=== PATIENT | male | born 1960 | race African-American/Black ===

== ENCOUNTER 2020-06-25 13:12 | Emergency (ER) | payer MEDICARE, OTHER ==
[~2020-06-25] VITALS: Ht 170.2 cm; Wt 114.8 kg
--- NOTE | 2020-06-25 13:30 | NUR ---
AAOX3, BIBRA39 FRM SCHVN C/O DIFFUSE ABDOMINAL PAIN X 20 MINS S/P EATING LUNCH. RR is even and unlabored with NAD noted. Skin is warm and non diaphoretic. Placed on hospital gown and monitor. Will continuously monitor the patient. Awaiting md for eval.
--- NOTE | 2020-06-25 14:00 | NUR ---
Dr Jaramillo at for [facility].
--- NOTE | 2020-06-25 14:03 | NUR ---
Started IVHL RAC 20g blood drawn sent to the lab.
[2020-06-25 14:05] LABS: BASOPHILS # (AUTO) 0.1 /CMM (0.0-0.2); BASOPHILS % (AUTO) 1.1 % (0.0-2.0); EOSINOPHILS % (AUTO) 2.7 % (0.0-6.0); HEMATOCRIT 42 % (39-51); LYMPHOCYTES # (AUTO) 1.9 /CMM (0.8-4.8); MEAN CORPUSCULAR HGB CONC 34 g/dl (31.0-36.0); MEAN CORPUSCULAR VOLUME 95 fL (80-96); MONOCYTES # (AUTO) 0.5 /CMM (0.1-1.30); MONOCYTES % (AUTO) 7.8 % (2.0-12.0); NEUTROPHILS % (AUTO) 60.4 % (43.0-81.0); PLATELET COUNT (AUTO) 211 /CMM (150-450); RED BLOOD CELL COUNT(AUTO) 4.39 MIL/uL (4.5-6.0); WHITE BLOOD COUNT (AUTO) 6.7 K/uL (4.3-11.0)
[2020-06-25 14:14] LABS: CARBON DIOXIDE 31 mmol/L (21-32); CHLORIDE 102 mmol/L (98-107); GLUCOSE 98 mg/dL (74-106); POTASSIUM 3.8 mmol/L (3.5-5.1); SODIUM SERUM 137 mmol/L (136-145); UREA NITROGEN, BLOOD 18 mg/dL (7-18)
[2020-06-25 14:20] LABS: ALANINE AMINOTRANSFERASE 23 U/L (12-78); ALBUMIN 3.9 g/dL (3.4-5.0); ALKALINE PHOSPHATASE 89 U/L (46-116); ASPARTATE AMINOTRANSFERASE 23 U/L (15-37); BILIRUBIN,DIRECT 0.1 mg/dL (0.0-0.2); BILIRUBIN,TOTAL 0.2 mg/dL (0.2-1.0); LIPASE 117 U/L (73-393); TOTAL PROTEIN, SERUM 7.5 g/dL (6.4-8.2)
--- NOTE | 2020-06-25 15:40 | NUR ---
Patient lives at [facility], gave a report to staff.
--- NOTE | 2020-06-25 15:58 | NUR ---
CALLED [facility] FOR TRANSPORT TO [facility]. ETA 30-45 MINUTES.
--- NOTE | 2020-06-25 17:02 | NUR ---
PATIENT A/OX3, NO DISTRESS NOTED. Patient discharged to [facility] in stable condition. Written and verbal after care instructions given. Patient verbalizes understanding of instruction. Report given to SCR[employer] WHEEL OPERATOR.
[2020-06-25 17:04] VITALS: BP 121/75
== END 2020-06-25 17:05 ==
LOC: ER 13:26
DX: R10.84 Generalized abdominal pain (principal); F25.9 Schizoaffective disorder, unspecified; I10 Essential (primary) hypertension; J44.9 Chronic obstructive pulmonary disease, unspecified; E78.5 Hyperlipidemia, unspecified; Z88.0 Allergy status to penicillin
CPT/HCPCS: 36415; 80048-TC; 80076-TC; 83690-TC; 84484-TC; 85025-TC